=== PATIENT | male | born 1955 | race Two or more races ===

== ENCOUNTER → 2023-07-22 | Outpatient (CLI) | payer MEDICARE ==
[~2023-07-22] MED LIST: LISI30TA4 PO; SIMV20TA22 PO
== END ==
LOC: M ONCR 14:13
PROVIDERS: ATTEND General Practice
DX: C61 Malignant neoplasm of prostate (principal); R97.20 Elevated prostate specific antigen [PSA]; N40.1 Benign prostatic hyperplasia with lower urinary tract symptoms; N13.8 Other obstructive and reflux uropathy; Z71.2 Person consulting for explanation of examination or test findings; Z79.899 Other long term (current) drug therapy

== ENCOUNTER → 2024-07-27 | Outpatient (CLI) | payer MEDICARE ==
[~2024-07-27] MED LIST changes: +BICA50TA4 PO
== END ==
LOC: M ONCR 08:33
PROVIDERS: ATTEND General Practice
DX: C61 Malignant neoplasm of prostate (principal); R97.20 Elevated prostate specific antigen [PSA]; Z90.79 Acquired absence of other genital organ(s); Z79.899 Other long term (current) drug therapy

== ENCOUNTER → 2024-09-05 | Outpatient (CLI) | payer MEDICARE ==
[~2024-09-05] MED LIST changes: +ONDA-83 PO; +OXYC-517 PO; +TAMS1CAP17 PO
== END ==
LOC: M RAD 11:07
PROVIDERS: ATTEND General Practice
DX: C61 Malignant neoplasm of prostate (principal)

== ENCOUNTER → 2024-09-06 | Outpatient (CLI) | payer MEDICARE ==
[2024-09-06] MEDS: LEUPROLIDE ACETATE 45 MG SC ONE (09:43)
== END ==
LOC: M ONCR 09:10
PROVIDERS: ATTEND General Practice
DX: C61 Malignant neoplasm of prostate (principal)
CPT/HCPCS: 96402; J9217

== ENCOUNTER → 2024-09-08 | Outpatient (RCR) | payer MEDICARE ==
[2024-09-05 10:47] LABS: APPEARANCE, URINE CLEAR (CLEAR); BACTERIA, URINE AUTO NEGATIVE (NEGATIVE); BILIRUBIN, URINE AUTO NEGATIVE (NEGATIVE); BLOOD, URINE BLOOD 3+ (NEGATIVE); COLOR, URINE YELLOW (YELLOW); GLUCOSE, URINE (UA) AUTO NEGATIVE (NEGATIVE); KETONE, URINE AUTO NEGATIVE (NEGATIVE); LEUKOCYTE ESTERASE, URINE AUTO NEGATIVE (NEGATIVE); MUCUS, URINE SMALL (NEGATIVE); NITRITE, URINE AUTO NEGATIVE (NEGATIVE); PROTEIN, URINE AUTO 1+ mg/dL (NEGATIVE); RBC, URINE AUTO 20 /HPF (0-3); SPECIFIC GRAVITY URINE AUTO 1.021 (1.002-1.035); SQUAMOUS EPITHELIAL CELL UR AU 0 /HPF (0-6); UROBILINOGEN, URINE AUTO 0.2 mg/dL (0.0-2.0); WBC, URINE AUTO 1 /HPF (0-3)
[2024-09-05] MEDS: ONDANSETRON 4MG ORAL DISINTEGRATING TAB PO ONE (12:16)
[2024-09-05] MEDS: KETOROLAC 30 MG/ML 1ML VIAL IM ONE (12:41)
[~2024-09-08] VITALS: Ht 180.3 cm; Wt 113.6 kg
[~2024-09-08] MED LIST changes: +KETOROLAC 30 MG/ML 1ML VIAL IV ONE; +KETOROLAC 60MG 2ML VIAL IM ONE
== END ==
LOC: M ONCR 08-14 07:45
PROVIDERS: ATTEND General Practice
DX: Z51.0 Encounter for antineoplastic radiation therapy (principal); C61 Malignant neoplasm of prostate
CPT/HCPCS: 36415; 77300; 77301; 77334; 77338; 77385; 81001; 96372; J1885

== ENCOUNTER → 2024-10-06 | Outpatient (RCR) | payer MEDICARE ==
[~2024-10-06] MED LIST changes: -KETOROLAC 30 MG/ML 1ML VIAL IV ONE; -KETOROLAC 60MG 2ML VIAL IM ONE; +METO5TAB2 PO
== END ==
LOC: M ONCR 09-11 09:01
PROVIDERS: ATTEND General Practice
DX: Z51.0 Encounter for antineoplastic radiation therapy (principal); C61 Malignant neoplasm of prostate

== ENCOUNTER 2024-10-27 09:06 | Outpatient (RCR) | payer MEDICARE | END 2024-11-06 | LOC: M ONCR 09:06 | PROVIDERS: ATTEND General Practice | DX: Z51.0 Encounter for antineoplastic radiation therapy (principal); C61 Malignant neoplasm of prostate ==